=== PATIENT | female | born 1965 | race Caucasian/White ===

== ENCOUNTER 2016-09-18 12:12 | Inpatient (IN) | payer OTHER ==
[~2016-09-18] VITALS: Ht 162.6 cm; Wt 52.6 kg
--- NOTE | 2016-09-18 12:25 | NUR ---
Patient to ER bed 04 to gown for evaluation. Side rails up. Report given to Svitlana.
--- NOTE | 2016-09-18 12:28 | NUR ---
ER at bedside examining patient.
[2016-09-18 12:30] VITALS: BP 148/90; PULSE 95; RESP 16; TEMP 97; O2SAT 100
[2016-09-18] MEDS ORDERED: NACL 0.9% 1,000 ML IV ONE (12:41)
--- NOTE | 2016-09-18 12:43 | NUR ---
Occult stool sent to lab
--- NOTE | 2016-09-18 12:44 | NUR ---
Pt brought by partner, A&O x4, pt was sent by Dr Schwab for abn labs, Hgb 6.7, pt c/o weakness,Hx of anemia, skin warm and pale, respirations even and unlabored, cap refill <3, VSS,pt denies chest pain, denies N/V.
[2016-09-18 13:07] LABS: BASOPHILS # (AUTO) 0.1 K/uL (0.0-0.2); BASOPHILS % (AUTO) 0.8 % (0.0-2.0); EOSINOPHILS # (AUTO) 0.1 K/uL (0.0-0.4); EOSINOPHILS % (AUTO) 1.5 % (0.0-4.0); LYMPHOCYTES # (AUTO) 1.4 K/uL (1.0-5.5); LYMPHOCYTES % (AUTO) 20.5 % (20.5-51.5); MEAN CORPUSCULAR HEMOGLOBIN 14 pg (27-31); MEAN CORPUSCULAR HGB CONC 27 % (32-36); MEAN CORPUSCULAR VOLUME 52 fL (79.0-98.0); MONOCYTES # (AUTO) 0.6 K/uL (0.0-1.0); MONOCYTES % (AUTO) 9.4 % (1.7-9.3); NEUTROPHILS # (AUTO) 4.6 K/uL (1.8-7.7); NEUTROPHILS % (AUTO) 67.8 % (40.0-70.0); PLATELET COUNT (AUTO) 491 K/uL (130-430); RED BLOOD CELL COUNT(AUTO) 4.74 MIL/uL (4.2-6.2); WHITE BLOOD COUNT (AUTO) 6.8 K/uL (4.8-10.8)
[2016-09-18 13:17] LABS: BILIRUBIN,URINE NEGATIVE (NEGATIVE); CLARITY/URINE CLEAR (CLEAR); COLOR,URINE YELLOW (YELLOW); GLUCOSE,URINE NEGATIVE (NEGATIVE); KETONES,URINE NEGATIVE (NEGATIVE); LEUKOCYTE ESTERASE ,URINE NEGATIVE (NEGATIVE); NITRITE, URINE NEGATIVE (NEGATIVE); PH,URINE 5.5 (5.0-8.0); PROTEIN URINE NEGATIVE (NEGATIVE); UROBILINOGEN,URINE 0.2 (0.2-1.0)
[2016-09-18 13:20] LABS: HEMOGLOBIN 6.7 g/dL (12.0-16.0); PROTHROMBIN TIME 10.6 SECS (9.5-12.5)
[2016-09-18 13:21] LABS: HEMATOCRIT 24.4 % (36-48)
[2016-09-18 13:24] LABS: BLOOD, URINE TRACE (NEGATIVE)
[2016-09-18 13:33] LABS: CALCIUM 8.5 mg/dL (8.4-11.0); CREATININE 0.64 mg/dL (0.55-1.30); POTASSIUM 3.9 mmol/L (3.5-5.1)
[2016-09-18 13:37] LABS: ALBUMIN 2.9 g/dL (3.4-4.8); TOTAL BILIRUBIN 0.2 mg/dL (0.0-1.0); TOTAL PROTEIN, SERUM 7.7 g/dL (6.4-8.3)
[2016-09-18 13:47] LABS: BACTERIA,URINE None Seen /HPF (None Seen); RBC,URINE 0-3 /HPF (0-3); WBC,URINE 0-3 /HPF (0-3)
--- NOTE | 2016-09-18 14:18 | NUR ---
Dr Hayes ordered type and crossmatch and 2 U of blood, order already submitted by ER MD Dr Vieira.
--- NOTE | 2016-09-18 14:30 | NUR ---
ADMIT NOTE Received pt from ER to the floor with a diagnosis of ANEMIA. Admission process initiated. patient oriented to pain management, safety and call light-teach back done.
[2016-09-18 14:35] VITALS: BP 136/86; PULSE 90; RESP 17; TEMP 98.9; O2SAT 95
--- NOTE | 2016-09-18 14:37 | NUR ---
Patient will be admitted to care of Dr Hayes. Admitted to Tele unit. Will go to room 126B . Belongings list completed. Summary report printed. Report given to Grecia Pedro.
--- NOTE | 2016-09-18 15:00 | NUR ---
INITIAL NOTE Late entry due to patient care. Patient received, alert awake and oriented x4. VSS. Patient denies pain or SOB at this time. IV site patent and intact. compliance monitor in place, rhythm noted. Patient able to ambulate to bathroom, gait steady. Plan of care discussed, patient verbalized understanding. Safety and fall precautions in place, call light within reach. Will continue to monitor.
[2016-09-18 16:04] VITALS: BP 142/89; PULSE 79; RESP 16; TEMP 97.8; O2SAT 100
--- NOTE | 2016-09-18 16:10 | NUR ---
BT INITIATION: Consent signed agreeing to administration of blood. Blood has been type and crossmatched. Blood sent from blood bank. Information on unit of blood checked against patient wristband at bedside by two nurses. All information matches. Patient or responsible libertarian informed of potential complications associated with blood transfusion. Informed of possible transfusion reaction symptoms. Aware of need to notify nurse at once of itching, shortness of breath, flushing, feeling of impending doom, or other symptoms not previously present. Vital signs taken within 5 minutes prior to initiation of transfusion. RN will remain with patient for first 15 minutes of transfusion at which time vital signs will be re-assessed. Addendum: 09/18/16 at 1823 by Estela Gee RN Blood transfusion complete. No reaction noted. VSS.
--- NOTE | 2016-09-18 18:23 | NUR ---
2ND BT INITIATION: Consent signed agreeing to administration of blood. Blood has been type and crossmatched. Blood sent from blood bank. Information on unit of blood checked against patient wristband at bedside by two nurses. All information matches. Patient or responsible libertarian informed of potential complications associated with blood transfusion. Informed of possible transfusion reaction symptoms. Aware of need to notify nurse at once of itching, shortness of breath, flushing, feeling of impending doom, or other symptoms not previously present. Vital signs taken within 5 minutes prior to initiation of transfusion. RN will remain with patient for first 15 minutes of transfusion at which time vital signs will be re-assessed.
[2016-09-18 19:10] LABS: IRON (SERUM) 10 mcg/dL (37-145); TOTAL IRON BIND. CAPACITY 424 ug/dL (250-450)
[2016-09-18 19:50] VITALS: BP 122/86; PULSE 82; RESP 18; TEMP 98.5; O2SAT 97
--- NOTE | 2016-09-18 20:00 | NUR ---
NOTES; PT IS SITTING UP IN BED WATCHING TV. NO APPARENT DISTRESS NOTED. VITAL SIGNS STABLE, AFEBRILE. IN TO THE LEFT A/, GAUGE 18, WITH 1 UNIT IF PRBC ONGOING AT THE LEFT AC, PATENT. NO SIGNS OF INFECTION NOTED. DENIES ANY PAIN AT THIS TIME. BED LOCKED AND IN LOW POSITION, SIDE RAILS UP X2 PER PT REQUEST. EDUCATED PT ON THE USE OF CALL LIGHT.SAFETY MEASURES IN PROGRESS. .
--- NOTE | 2016-09-18 20:32 | NUR ---
CONSULT CALLED FOR DOCTOR LORI ALEXANDRE IS ON REASON SEVERE, ANEMIA , POSS. GI SOURCE, SPOKE WITH. VICK
[2016-09-18] MEDS ORDERED: MAGNESIUM CITRATE 300 ML ORAL SOLUTION PO ONE (21:00)
--- NOTE | 2016-09-18 21:00 | NUR ---
NOTES; BLOOD TRANSFUSION COMPLETED. BP 136/88, HR 78, RESP 18, TEMP 98.7, SAT 99%. NO TRANSFUSION REACTION NOTED. PT DENIES ANY PAIN AT THIS TIME. SAFETY MEASURES IN PROGRESS.
--- NOTE | 2016-09-18 21:11 | NUR ---
NOTES; MAGNESIUM CITRATE ADMINISTERED. PT IS DRINKING MEDICATION. WILL CONTINUE TO MONITOR.
[2016-09-18] MEDS ORDERED: GOLYTELY / COLYTE SOLUTION 4 LITERS ONE (21:52)
--- NOTE | 2016-09-18 22:13 | NUR ---
NOTES; GOLYTELY ADMINISTERED. PT TOLERATING WELL. WILL CONTINUE TO MONITOR.
--- NOTE | 2016-09-18 22:24 | NUR ---
PAGED PAGED ADIN STRATTON AT [phone] SPOKE WITH SARAH.
[2016-09-18] MEDS ORDERED: BISACODYL 5 MG TABLET.DR (DULCOLAX) PO ONE (22:30)
--- NOTE | 2016-09-18 22:48 | NUR ---
NOTES; SCHEDULED DULCOLAX PO ADMINISTERED. PT TOLERATED MEDICATION WELL.
--- NOTE | 2016-09-19 | NUR ---
NOTES; PT IS SITTING UP IN BED DRINKING GOLYTELY. TOLERATED GOLYTELY WELL. STOOL NOT CLEAR. WILL CONTINUE TO MONITOR.
[2016-09-19 00:17] VITALS: BP 131/78; PULSE 82; RESP 18; TEMP 97.1; O2SAT 98
--- NOTE | 2016-09-19 01:30 | NUR ---
NOTES; PT COMPLETED GOLYTELY. TOLERATED GOLYTELY WELL. STOOL NOT CLEAR. WILL CONTINUE TO MONITOR.
--- NOTE | 2016-09-19 03:30 | NUR ---
NOTES; AWAKE, DENIES ANY PAIN OR NAUSEA, VOMITING. STOOL IS CLEAR. WILL CONTINUE TO MONITOR.
[2016-09-19 04:00] VITALS: BP 127/76; PULSE 76; RESP 18; TEMP 97; O2SAT 97
--- NOTE | 2016-09-19 05:00 | NUR ---
NOTES; RESTING QUIETLY, EASILY AROUSED. DENIES ANY PAIN OR NAUSEA, VOMITING. STOOL IS CLEAR. WILL CONTINUE TO MONITOR.
[2016-09-19] MEDS ORDERED: SIMETHICONE 40 MG/0.6 ML ML ONE (05:50)
[2016-09-19 06:34] LABS: EOSINOPHILS # (AUTO) 0.2 K/uL (0.0-0.4); HEMOGLOBIN 8.4 g/dL (12.0-16.0); MONOCYTES # (AUTO) 0.6 K/uL (0.0-1.0)
--- NOTE | 2016-09-19 06:41 | NUR ---
NOTES; CONSENT NOT SIGNED BECAUSE DID NOT EXPLAINED PROCEDURE TO PT YET. STOOL CLEAR, DENIES ANY PAIN AT THIS TIME. NPO MAINTAINED. ALL NEEDS ATTENDED. SAFETY MEASURES IN PROGRESS.
[2016-09-19 06:57] LABS: ALBUMIN 2.6 g/dL (3.4-4.8); CREATININE 0.54 mg/dL (0.55-1.30); POTASSIUM 3.5 mmol/L (3.5-5.1); TOTAL BILIRUBIN 0.5 mg/dL (0.0-1.0); TOTAL PROTEIN, SERUM 6.8 g/dL (6.4-8.3)
[2016-09-19 07:18] LABS: BASOPHILS # (AUTO) 0.1 K/uL (0.0-0.2); EOSINOPHILS % (AUTO) 2.9 % (0.0-4.0); LYMPHOCYTES # (AUTO) 1.6 K/uL (1.0-5.5); LYMPHOCYTES % (AUTO) 26.4 % (20.5-51.5); MEAN CORPUSCULAR HEMOGLOBIN 17 pg (27-31); MEAN CORPUSCULAR HGB CONC 29 % (32-36); MEAN CORPUSCULAR VOLUME 58 fL (79.0-98.0); MONOCYTES % (AUTO) 9.9 % (1.7-9.3); NEUTROPHILS # (AUTO) 3.6 K/uL (1.8-7.7); NEUTROPHILS % (AUTO) 59.8 % (40.0-70.0); PLATELET COUNT (AUTO) 399 K/uL (130-430); RED BLOOD CELL COUNT(AUTO) 5.04 MIL/uL (4.2-6.2); RED CELL DISTRIBUTION WIDTH 33.1 % (9.0-15.0); WHITE BLOOD COUNT (AUTO) 6.1 K/uL (4.8-10.8)
[2016-09-19 07:50] VITALS: BP 138/84; PULSE 89; RESP 18; TEMP 98.6; O2SAT 96
--- NOTE | 2016-09-19 07:52 | NUR ---
Initial Note Received pt in bed, no s/s of distress or sob noted, pt has no c/o pain at this time, pt in stable condition. Bed at lowest position, call light within reach, will continue to monitor pt for any changes. Fall precautions in place. Pt npo for procedure this am, consent not signed due to MD not speaking to her about the procedures.
[2016-09-19 08:27] LABS: HCG,QUAL RESULT NEGATIVE (NEGATIVE)
[2016-09-19] MEDS: MEPERIDINE HCL/PF 100 MG/ML AMP ONE ×3 (10:16→10:50)
[2016-09-19] MEDS: MIDAZOLAM HCL 5 MG/5 ML VIAL ONE ×4 (10:16→10:32)
[2016-09-19] MEDS ORDERED: MEPERIDINE HCL/PF 100 MG/ML AMP ONE (10:27)
[2016-09-19] MEDS ORDERED: DIATR MEGLU/DIATRIZ SOD 30 ML SOLUTION PO ONE (11:30)
[2016-09-19] MEDS ORDERED: IOHEXOL 100 ML IV ONE (11:30)
--- NOTE | 2016-09-19 11:30 | NUR ---
BACK FROM GI PT BACK FROM GI, PT IN STABLE CONDITION, NO S/S OF DISTRESS OR SOB NOTED, PT HAS NO C/O PAIN AT THIS TIME, PT AWAKE AND ALERT, ORIENTED X4, VERBAL, VSS, 124/82, 18, 98.6, 88, 100% ROOM AIR. WILL CONTINUE TO MONITOR PT FOR ANY CHANGES.
[2016-09-19] MEDS: FERROUS SULFATE 325 MG TABLET.DR PO ONE ×2 (11:45→16:53)
--- NOTE | 2016-09-19 12:25 | NUR ---
ROUNDS PT IN BED, NO S/S OF DISTRESS OR SOB NOTED, PT HAS NO C/O PAIN AT THIS TIME, PT IN STABLE CONDITION, PT RESTING COMFORTABLY, WILL CONTINUE TO MONITOR PT FOR ANY CHANGES. PT DRINKING CONTRAST FRO CT OF ABDOMEN AND PELVIS ORDERED.
[2016-09-19 12:42] VITALS: BP 121/83; PULSE 54; RESP 16; TEMP 98.9; O2SAT 100
--- NOTE | 2016-09-19 14:45 | NUR ---
ROUNDS PT IN BED, NO S/S OF DISTRESS OR SOB NOTED, PT HAS NO C/O PAIN AT THIS TIME, PT IN STABLE CONDITION, PT RESTING COMFORTABLY, WILL CONTINUE TO MONITOR PT FOR ANY CHANGES.
[2016-09-19] MEDS ORDERED: FERR-57 PO (16:22)
[2016-09-19] MEDS ORDERED: FAMO20TA8 PO (16:23)
[2016-09-19 16:26] VITALS: BP 124/76; PULSE 82; RESP 18; TEMP 98.6; O2SAT 100
[2016-09-19] MEDS ORDERED: BISACODYL 5 MG TABLET.DR (DULCOLAX) PO SCH ×2 (17:00)
--- NOTE | 2016-09-19 17:02 | NUR ---
D/C Patient Patient given medication reconciliation form and D/C instructions. Exit Care provided. Patient verbalized understanding. MD discussed with patient the results and treatment provided. Ambulatory with steady gait for discharge to home. Patient in stable condition, ID band removed. IV catheter removed, intact and dressing applied, no active bleeding. Rx of pepcid and feosol given. Patient educated on pain management. All belongings sent with patient.
[2016-09-19 17:04] VITALS: BP 135/85; PULSE 66; RESP 15; TEMP 97.3; O2SAT 96
[2016-09-19] MEDS ORDERED: GOLYTELY / COLYTE SOLUTION 4 LITERS PO SCH (18:00)
[2016-09-19] MEDS ORDERED: FERROUS SULFATE 325 MG TABLET.DR PO SCH (21:00)
[2016-09-20 10:08] LABS: FOLATE (FOLIC ACID) 9.1 ng/mL (>3.0)
== END 2016-09-19 17:02 | disposition home or self-care (01) | DRG 812 ==
LOC: SED 12:12 → SMU 13:41 → STU 15:16 → SMU 09-19 15:23
PROVIDERS: ADMIT Internal Medicine; ATTEND Internal Medicine
PROC: 30233N1 Transfusion of Nonautologous Red Blood Cells into Peripheral Vein, Percutaneous Approach (ICD-10-PCS; 2016-09-18)
PROC: 0DB98ZX Excision of Duodenum, Via Natural or Artificial Opening Endoscopic, Diagnostic (ICD-10-PCS; 2016-09-19)
PROC: 0DJD8ZZ Inspection of Lower Intestinal Tract, Via Natural or Artificial Opening Endoscopic (ICD-10-PCS; principal; 2016-09-19 09:30)
PROC: 0DB68ZX Excision of Stomach, Via Natural or Artificial Opening Endoscopic, Diagnostic (ICD-10-PCS; 2016-09-19 09:30)
DX: D50.9 Iron deficiency anemia, unspecified (principal); Z68.1 Body mass index [BMI] 19.9 or less, adult; E44.0 Moderate protein-calorie malnutrition; K29.60 Other gastritis without bleeding; K64.8 Other hemorrhoids; Z82.49 Family history of ischemic heart disease and other diseases of the circulatory system; Z88.0 Allergy status to penicillin
CPT/HCPCS: 36415; 43239; 45378; 71260-TC; 80053; 81000-TC; 82607; 82728; 82746; 83540-TC; 83550-TC; 83690-TC; 84443-TC; 84703; 85025; 85610-TC; 85730-TC; 86886; 86900; 86901; 86920; 87081; 88305; 88312; 88313; 96360; 99285; J2175; J2250; J7030; J7040; P9021; Q9964; Q9967